=== PATIENT | male | born 1995 | race Caucasian/White ===

== ENCOUNTER 2017-05-10 13:18 | Emergency (ER) | payer SELFPAY ==
[~2017-05-10 13:18] MED LIST: Sodium Chloride 0.9% 1,000 ML BAG ONE
[2017-05-10] MEDS ORDERED: Famotidine In NaCl 20 mg/50 ml Premix Bag ONE (13:37)
[2017-05-10] MEDS ORDERED: Ketorolac Tromethamine 30 MG/ML VIAL ONE (13:37)
[2017-05-10] MEDS ORDERED: Ondansetron HCl/PF 4 MG/2 ML Vial ONE (13:37)
[2017-05-10 13:51] LABS: Clarity Clear (Clear); Glucose, Urine (Dipstick) Negative (Negative); Leukocyte Negative (Negative); Nitrite Negative (Negative); Protein, Urine (Dipstick) Negative (Neg-Trace); Specific Gravity, Urine 1.024 (1.002-1.036); Urobilinogen 0.2 mg/dL (0.2-1.0); pH, Urine 5.5 (5.0-9.0)
[2017-05-10 13:52] LABS: Bilirubin Negative (Negative); Blood, Urine Negative (Negative)
[2017-05-10 14:11] LABS: #Basophils 0.1 thou/uL (0.0-0.2); #Eosinphils 0.1 thou/uL (0.0-0.7); #Lymphocytes 2.1 thou/uL (1.20-3.40); #Monocytes 0.5 thou/uL (0.11-0.59); #Neutrophils 3.9 thou/uL (1.40-6.50); %Basophils 0.9 % (0.0-1.0); %Eosinophils 1.3 % (0.0-10.0); %Lymphocytes 31.9 % (28.0-48.0); %Monocytes 6.8 % (0.0-4.0); %Neutrophils 59.2 % (31.0-61.0); Hemoglobin 14.7 g/dL (14.0-18.0); Mean Corpuscular HGB CONC 33.3 g/dL (32.0-36.0); Mean Corpuscular Hemoglobin 30.4 pg (25.0-35.0); Mean Corpuscular Volume 91.4 fl (77.0-87.0); Platelet Count 165 thou/uL (130-400); RBC Distribution Width 12.2 % (11.5-14.5); Red Blood Cell (RBC) Count 4.84 mill/uL (4.00-5.20); White Blood Cell (WBC) Count 6.6 thou/uL (4.8-10.8)
[2017-05-10 14:21] LABS: Anion Gap 12 mmol/L (10-20); BUN (Urea Nitrogen) 13 mg/dL (8.9-20.6); Calc. Creatinine Clearance 0 mL/min (70-130); Calcium 8.9 mg/dL (7.8-10.44); Carbon Dioxide 24 mmol/L (22-29); Chloride 110 mmol/L (98-107); Estimated GFR-MDRD Greater than 90; Glucose 104 mg/dL (70-105); Potassium 3.6 mmol/L (3.5-5.1); Sodium 142 mmol/L (136-145)
== END 2017-05-10 15:27 | disposition home or self-care (01) ==
LOC: MADERS 13:18
DX: K29.70 Gastritis, unspecified, without bleeding (principal); F17.210 Nicotine dependence, cigarettes, uncomplicated
CPT/HCPCS: 80048; 81003; 82150; 85025; 96361; 96365; 96375; J1885; J2405; J7050

== ENCOUNTER 2017-10-03 16:11 | Emergency (ER) | payer SELFPAY | END 2017-10-03 16:48 | disposition home or self-care (01) | LOC: MADERS 16:11 | DX: J10.1 Influenza due to other identified influenza virus with other respiratory manifestations (principal); H66.92 Otitis media, unspecified, left ear; F17.210 Nicotine dependence, cigarettes, uncomplicated | CPT/HCPCS: 99283 ==

== ENCOUNTER 2018-01-08 14:39 | Emergency (ER) | payer SELFPAY ==
[2018-01-08] MEDS ORDERED: Benzonatate 100 MG CAP ONE (15:34)
[2018-01-08] MEDS ORDERED: AMOXicillin 250 MG CAP ONE (15:34)
== END 2018-01-08 15:40 | disposition home or self-care (01) ==
LOC: MADERS 14:39
DX: J20.9 Acute bronchitis, unspecified (principal); F17.210 Nicotine dependence, cigarettes, uncomplicated
CPT/HCPCS: 99283

== ENCOUNTER 2018-01-27 12:56 | Emergency (ER) | payer SELFPAY ==
[2018-01-27] MEDS ORDERED: methylPREDNISolone Sod Succ/PF 125 MG/2 ML VIAL ONE (13:23)
[2018-01-27] MEDS ORDERED: Ibuprofen 800 MG TAB ONE (13:23)
[2018-01-27] MEDS ORDERED: HYDROcodone/Acetaminophen 10/325 mg Tablet ONE (13:23)
== END 2018-01-27 13:53 | disposition home or self-care (01) ==
LOC: MADERS 12:56
DX: L55.0 Sunburn of first degree (principal); F90.9 Attention-deficit hyperactivity disorder, unspecified type; F17.210 Nicotine dependence, cigarettes, uncomplicated
CPT/HCPCS: 96372; J2930

== ENCOUNTER 2018-02-17 21:15 | Emergency (ER) | payer SELFPAY ==
[~2018-02-17 21:15] MED LIST changes: +Iopamidol 370 76% 100 ML VIAL ONE; -Sodium Chloride 0.9% 1,000 ML BAG ONE
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
[2018-02-17] MEDS ORDERED: Morphine 10 MG/ML VIAL ONE (22:43)
[2018-02-17] MEDS ORDERED: Ondansetron ODT 4 MG TAB ONE (22:47)
[2018-02-17] MEDS ORDERED: Ketorolac Tromethamine 30 MG/ML VIAL ONE (22:47)
[2018-02-17] MEDS ORDERED: Diazepam 5 MG TAB ONE (22:50)
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
[2018-02-17 23:19] LABS: #Basophils 0.1 thou/uL (0.0-0.2); #Eosinphils 0.1 thou/uL (0.0-0.7); #Lymphocytes 2.9 thou/uL (1.20-3.40); #Monocytes 0.7 thou/uL (0.11-0.59); %Basophils 0.8 % (0.0-1.0); %Eosinophils 0.6 % (0.0-10.0); %Lymphocytes 33.7 % (21.0-51.0); %Neutrophils 56.9 % (42.0-75.0); Mean Corpuscular HGB CONC 33.5 g/dL (32.0-36.0); Mean Corpuscular Hemoglobin 29.3 pg (27.0-31.0); Mean Corpuscular Volume 87.5 fl (80.0-94.0); Mean Platelet Volume 9.2 fL (7.4-10.4); Platelet Count 168 thou/uL (130-400); RBC Distribution Width 11.8 % (11.5-14.5); Red Blood Cell (RBC) Count 4.77 mill/uL (4.70-6.10); White Blood Cell (WBC) Count 8.7 thou/uL (4.8-10.8)
[2018-02-17 23:23] LABS: ALT (SGPT) 27 U/L (8-55); AST (SGOT) 16 U/L (5-34); Albumin 4.1 g/dL (3.5-5.0); Alkaline Phosphatase 86 U/L (40-150); Anion Gap 13 mmol/L (10-20); BUN (Urea Nitrogen) 17 mg/dL (8.9-20.6); Bilirubin, Total 0.6 mg/dL (0.2-1.2); Calc. Creatinine Clearance 0 mL/min (70-130); Calcium 9.2 mg/dL (7.8-10.44); Carbon Dioxide 22 mmol/L (22-29); Chloride 109 mmol/L (98-107); Estimated GFR-MDRD Greater than 90; Globulin 2.3 g/dL (2.4-3.5); Glucose 90 mg/dL (70-105); Lipase 56 U/L (8-78); Potassium 3.5 mmol/L (3.5-5.1); Protein, Total 6.4 g/dL (6.0-8.3); Sodium 140 mmol/L (136-145)
[2018-02-18] LABS: Bilirubin Negative (Negative); Blood, Urine Negative (Negative); Clarity Clear (Clear); Glucose, Urine (Dipstick) Negative (Negative); Leukocyte Negative (Negative); Nitrite Negative (Negative); Protein, Urine (Dipstick) Negative (Neg-Trace)
[2018-02-18 00:03] LABS: Bacteria/HPF None Seen HPF (None Seen); RBC/HPF None Seen HPF (0-3); Squamous Epithelial None Seen HPF (0-3); WBC/HPF None Seen HPF (0-3)
[2018-02-18] MEDS ORDERED: HYDROcodone/Acetaminophen 10/325 mg Tablet ONE (00:40)
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
== END 2018-02-18 00:45 | disposition home or self-care (01) ==
LOC: MADERS 21:15
DX: T07.XXXA Unspecified multiple injuries, initial encounter (principal); F17.210 Nicotine dependence, cigarettes, uncomplicated; V43.62XA Car passenger injured in collision with other type car in traffic accident, initial encounter; W22.12XA Striking against or struck by front passenger side automobile airbag, initial encounter
CPT/HCPCS: 70450; 71046; 71260; 72125; 74177; 80053; 81001; 83690; 85025; 87086; 93005; 96374; 96375; J1885; J2270; Q0162

== ENCOUNTER → 2018-02-19 | Emergency (ER) | payer SELFPAY | LOC: MADERS 15:18 | DX: S20.219A Contusion of unspecified front wall of thorax, initial encounter (principal); F90.9 Attention-deficit hyperactivity disorder, unspecified type; F17.210 Nicotine dependence, cigarettes, uncomplicated; V89.2XXA Person injured in unspecified motor-vehicle accident, traffic, initial encounter; Z79.899 Other long term (current) drug therapy | CPT/HCPCS: 99284 ==

== ENCOUNTER 2018-02-26 17:51 | Emergency (ER) | payer SELFPAY | END 2018-02-26 18:55 | disposition home or self-care (01) | LOC: MADERS 17:51 | DX: S22.20XA Unspecified fracture of sternum, initial encounter for closed fracture (principal); F90.9 Attention-deficit hyperactivity disorder, unspecified type; F17.210 Nicotine dependence, cigarettes, uncomplicated; Z79.01 Long term (current) use of anticoagulants; Z79.899 Other long term (current) drug therapy; V89.2XXA Person injured in unspecified motor-vehicle accident, traffic, initial encounter | CPT/HCPCS: 99283 ==

== ENCOUNTER 2018-04-22 17:02 | Emergency (ER) | payer SELFPAY ==
[~2018-04-22 17:02] MED LIST changes: -Iopamidol 370 76% 100 ML VIAL ONE; +Sodium Chloride Irrig Solution 250 ML BOT ONE
[2018-04-22] MEDS ORDERED: traMADol HCl 50 MG TAB ONE (18:21)
== END 2018-04-22 18:30 | disposition home or self-care (01) ==
LOC: MADERS 17:02
DX: H10.9 Unspecified conjunctivitis (principal); I10 Essential (primary) hypertension; F17.210 Nicotine dependence, cigarettes, uncomplicated
CPT/HCPCS: 99283

== ENCOUNTER 2018-11-25 16:36 | Emergency (ER) | payer OTHER, SELFPAY ==
[2018-11-25] MEDS ORDERED: Ibuprofen 800 MG TAB ONE (17:01)
== END 2018-11-25 17:06 | disposition home or self-care (01) ==
LOC: MADERS 16:36
DX: J11.1 Influenza due to unidentified influenza virus with other respiratory manifestations (principal); F17.210 Nicotine dependence, cigarettes, uncomplicated; F90.9 Attention-deficit hyperactivity disorder, unspecified type
CPT/HCPCS: 99283

== ENCOUNTER 2019-01-09 05:37 | Emergency (ER) | payer OTHER, SELFPAY ==
[2019-01-09] MEDS ORDERED: Tetracaine 0.5% OPHTH SOLN/PF 4 ML BOT ONE (05:51)
[2019-01-09] MEDS ORDERED: Cyclopentolate 1% Opth Drop 2 ML BOT ONE (06:13)
[2019-01-09] MEDS ORDERED: Erythromycin Base 0.5% Ophth Oint 3.5 gm Tube ONE (06:16)
[2019-01-09] MEDS ORDERED: HYDROcodone/Acetaminophen 10/325 mg Tablet ONE (06:19)
== END 2019-01-09 06:26 | disposition home or self-care (01) ==
LOC: MADERS 05:37
DX: H16.133 Photokeratitis, bilateral (principal); F17.210 Nicotine dependence, cigarettes, uncomplicated
CPT/HCPCS: 99283

== ENCOUNTER 2019-03-09 20:54 | Emergency (ER) | payer SELFPAY ==
[2019-03-09] MEDS ORDERED: Tetracaine 0.5% OPHTH SOLN/PF 4 ML BOT ONE (21:00)
[2019-03-09] MEDS ORDERED: traMADol HCl 50 MG TAB ONE (21:11)
[2019-03-09] MEDS ORDERED: Adacel (T-DAP) 0.5 ML SYRINGE ONE (21:20)
== END 2019-03-09 21:43 | disposition home or self-care (01) ==
LOC: MADERS 20:54
DX: H16.133 Photokeratitis, bilateral (principal); F17.210 Nicotine dependence, cigarettes, uncomplicated; Z71.6 Tobacco abuse counseling
CPT/HCPCS: 90715

== ENCOUNTER 2019-05-30 17:23 | Emergency (ER) | payer SELFPAY ==
[2019-05-30] MEDS ORDERED: Mag-Al Plus 1200 MG/1200 MG/120 MG/30 ML UDCUP ONE (17:49)
[2019-05-30] MEDS ORDERED: Lidocaine Viscous Sol 2% 15 ml UD Cup ONE (17:49)
[2019-05-30] MEDS ORDERED: Dicyclomine 10 MG CAP ONE (17:49)
== END 2019-05-30 18:19 | disposition home or self-care (01) ==
LOC: MADERS 17:23
DX: K52.9 Noninfective gastroenteritis and colitis, unspecified (principal); F90.9 Attention-deficit hyperactivity disorder, unspecified type; F17.210 Nicotine dependence, cigarettes, uncomplicated
CPT/HCPCS: 99283